=== PATIENT | male | born 1945 | race Two or more races ===

== ENCOUNTER 2020-07-24 16:09 | Emergency (ER) | payer OTHER ==
[~2020-07-24] VITALS: Ht 160 cm; Wt 65.8 kg
[~2020-07-24 16:09] MED LIST: ASA81 MG; METFORMIN HCL850 MG
[2020-07-24] MEDS ORDERED: KETO10TA2 PO (21:40)
== END 2020-07-24 22:07 | disposition home or self-care (01) ==
LOC: ER 16:09
DX: R10.32 Left lower quadrant pain (principal)

== ENCOUNTER 2023-06-18 17:19 | Emergency (ER) | payer OTHER ==
[~2023-06-18] VITALS: Ht 154.9 cm; Wt 70.8 kg
[~2023-06-18 17:19] MED LIST changes: +KETO10TA2 PO
[2023-06-18 18:27] LABS: HEMATOCRIT 47.9 % (39.0-48.0); HEMOGLOBIN 15.9 g/dL (13-16.00); MEAN CELL VOLUME 85.5 fL (80.0-100.00); MEAN CORPUSCULAR HEMOGLOBIN 28.3 pg (27.00-32.0); MEAN CORPUSCULAR HGB CONC 33.1 g/dl (32.0-36.0); PLATELET COUNT 550 K/uL (150-450); RED BLOOD COUNT 5.61 M/uL (4.00-6.00); RED CELL DISTRIBUTION WIDTH 14.5 % (11.5-14.5)
[2023-06-18 18:44] LABS: ALBUMIN 4.1 gm/dL (3.4-5.0); BILIRUBIN TOTAL 0.42 mg/dL (0.3-1.2); CALCIUM 10.3 mg/dL (8.5-10.1); CREATININE SERUM 1.25 mg/dL (0.70-1.30); GFR 56.01; POTASSIUM 4.62 mEq/L (3.5-5.1); TOTAL PROTEIN 8.1 gm/dL (6.4-8.2)
[2023-06-18 18:51] LABS: PH,URINE 6.5 (5.0-8.0); URINE APPEARANCE Clear; URINE BILIRRUBIN Negative (NEGATIVE); URINE BLOOD Negative; URINE COLOR Yellow; URINE LEUKOCYTE Negative; URINE NITRATE Negative; URINE PROTEIN 30 (NEGATIVE); URINE UROBILINOGEN 0.2 E.U./dl
[2023-06-18 18:52] LABS: URINE BACTERIA 33.9 uL (0.0-1933); URINE WBC 4.9 uL (0.0-23.2)
[2023-06-18 18:53] LABS: URINE EPITHELIAL CELLS 0.4 uL (0.0-38.8); URINE GLUCOSE >=1000 MG/DL (NEGATIVE)
== END 2023-06-18 22:04 | disposition home or self-care (01) ==
LOC: ER 17:19
PROVIDERS: General Practice
DX: R51.9 Headache, unspecified (principal); Z20.822 Contact with and (suspected) exposure to COVID-19

== ENCOUNTER 2023-09-24 23:16 | Inpatient (IN) | payer OTHER ==
[~2023-09-24] VITALS: Ht 152.4 cm; Wt 63.5 kg
[2023-09-24] MEDS ORDERED: GLIPIZIDE ER10 MG PO (23:47)
[2023-09-24] MEDS ORDERED: TRADJENTA5 MG PO (23:48)
[2023-09-24] MEDS ORDERED: ARICEPT10 MG PO (23:48)
[2023-09-24] MEDS ORDERED: AMITRIPTYLINE H25 MG (23:49)
[2023-09-24] MEDS ORDERED: ZESTRIL2.5 MG PO (23:49)
[2023-09-24] MEDS ORDERED: AMITRIPTYLINE H25 MG PO (23:49)
[2023-09-24] MEDS ORDERED: ATORVASTATIN CA10 MG PO (23:50)
[2023-09-25] MEDS ORDERED: LORazepam 2 MG/ML VIAL IV PUSH STA (00:25)
[2023-09-25 01:01] LABS: HEMATOCRIT 41.1 % (39.0-48.0); HEMOGLOBIN 13.6 g/dL (13-16.00); MEAN CELL VOLUME 85.3 fL (80.0-100.00); MEAN CORPUSCULAR HEMOGLOBIN 28.2 pg (27.00-32.0); MEAN CORPUSCULAR HGB CONC 33.1 g/dl (32.0-36.0); PLATELET COUNT 402 K/uL (150-450); RED BLOOD COUNT 4.82 M/uL (4.00-6.00); RED CELL DISTRIBUTION WIDTH 14.7 % (11.5-14.5)
[2023-09-25 01:11] LABS: INR 1.12; PARTIAL THROMBOPLASTIN TIME 29.4 SECONDS (22.0-34.0); PROTHROMBIN TIME 11.7 SECONDS (9.0-11.5)
[2023-09-25 01:16] LABS: ALBUMIN 3.7 gm/dL (3.4-5.0); BILIRUBIN TOTAL 0.64 mg/dL (0.3-1.2); CALCIUM 9.1 mg/dL (8.5-10.1); CREATININE SERUM 1.22 mg/dL (0.70-1.30); GFR 57.6; GLOBULINA 3.8 G/DL (2.4-3.5); POTASSIUM 4.58 mEq/L (3.5-5.1); TOTAL PROTEIN 7.5 gm/dL (6.4-8.2)
[2023-09-25 01:17] LABS: PH,URINE 6.5 (5.0-8.0); URINE APPEARANCE Clear; URINE BILIRRUBIN Negative (NEGATIVE); URINE BLOOD Negative; URINE COLOR Yellow; URINE LEUKOCYTE Negative; URINE NITRATE Negative; URINE UROBILINOGEN 0.2 E.U./dl
[2023-09-25 01:21] LABS: URINE EPITHELIAL CELLS 4.6 uL (0.0-38.8); URINE RBC 5.4 uL (0.0-20.8); URINE WBC 34.1 uL (0.0-23.2)
[2023-09-25 01:34] LABS: URINE GLUCOSE >=1000 MG/DL (NEGATIVE); URINE PROTEIN 100 (NEGATIVE)
[2023-09-25] MEDS ORDERED: DIPHENHYDRAMINE HCL 50 MG/ML VIAL 1ML IV STA (02:38)
[2023-09-25] MEDS ORDERED: DEXAMETHASONE SODIUM PHOSPHATE 4 MG/ML VIAL IV STA (03:45)
[2023-09-25] MEDS ORDERED: HALOPERIDOL LACTATE 5 MG/ML AMPUL IV STA ×2 (04:00→05:11)
[2023-09-25] MEDS ORDERED: 0.9 % SODIUM CHLORIDE 1,000 ML IV ONE ×2 (05:30→15:15)
[2023-09-25] MEDS ORDERED: LORazepam 2 MG/ML VIAL IV PRN ×2 (08:00→15:00)
[2023-09-25] MEDS ORDERED: ACETAMINOPHEN 650 MG SUPP.RECT RECTAL ONE (08:15)
[2023-09-25] MEDS ORDERED: VANCOMYCIN HCL 1,000 MG in 0.9 % SODIUM CHLORIDE 250 ML IV SCH (14:51)
[2023-09-25] MEDS ORDERED: CEFTRIAXONE SODIUM 1,000 MG VIAL IV SCH (14:52)
[2023-09-25] MEDS ORDERED: ACYCLOVIR SODIUM 1,000 MG in DEXTROSE 5 % IN WATER 250 ML IV SCH (14:55)
[2023-09-25] MEDS ORDERED: INSULIN LISPRO 1,000 UNIT/10 ML UNITS SUBCUTANEO PRN (15:00)
[2023-09-25] MEDS ORDERED: DEXTROSE 50 % IN WATER 0.5 G/ML DISP.SYRIN IV PRN (15:00)
[2023-09-25] MEDS ORDERED: ENALAPRILAT DIHYDRATE 1.25 MG/ML VIAL IV PRN (15:00)
[2023-09-25] MEDS ORDERED: FAMOTIDINE/PF 20 MG in 0.9 % SODIUM CHLORIDE 100 ML IV SCH (21:00)
[2023-09-26] MEDS ORDERED: AMPICILLIN SODIUM 2,000 MG in 0.9 % SODIUM CHLORIDE 100 ML IV SCH
[2023-09-26 07:27] LABS: HEMATOCRIT 46.4 % (39.0-48.0); HEMOGLOBIN 15.2 g/dL (13-16.00); MEAN CELL VOLUME 85.4 fL (80.0-100.00); MEAN CORPUSCULAR HGB CONC 32.8 g/dl (32.0-36.0); PLATELET COUNT 406 K/uL (150-450); RED BLOOD COUNT 5.43 M/uL (4.00-6.00); RED CELL DISTRIBUTION WIDTH 14.7 % (11.5-14.5)
[2023-09-26 07:34] LABS: ALBUMIN 3.7 gm/dL (3.4-5.0); BILIRUBIN TOTAL 0.89 mg/dL (0.3-1.2); CALCIUM 8.6 mg/dL (8.5-10.1); CREATININE SERUM 1.25 mg/dL (0.70-1.30); GFR 56.01; POTASSIUM 4.51 mEq/L (3.5-5.1); T4 FREE 1.06 NG/ML (0.76-1.46); TOTAL PROTEIN 7.7 gm/dL (6.4-8.2); TSH 1.14 uIU/mL (0.358-3.74)
[2023-09-26 07:35] LABS: C-REACTIVE PROTEIN 2.11 MG/DL (0.00-0.29)
[2023-09-26] MEDS ORDERED: ACYCLOVIR SODIUM 1,000 MG VIAL IV ONE (08:15)
[2023-09-26] MEDS ORDERED: VANCOMYCIN HCL 1,000 MG in 0.9 % SODIUM CHLORIDE 250 ML IV SCH (09:00)
[2023-09-26] MEDS ORDERED: ENOXAPARIN SODIUM 40 MG/0.4 ML SYRINGE SUBCUTANEO SCH (09:00)
[2023-09-26] MEDS ORDERED: ACYCLOVIR SODIUM 1,000 MG VIAL IV SCH (09:00)
[2023-09-26] MEDS ORDERED: CEFTRIAXONE SODIUM 2,000 MG VIAL IV SCH (09:00)
[2023-09-26] MEDS ORDERED: NYSTATIN 15 GM,SILVER SULFADIAZINE 50 GM,ZINC OXIDE 30 GM TOP SCH (11:00)
[2023-09-26] MEDS ORDERED: ACYCLOVIR SODIUM 7MG/ML REDILUIDO IV SCH (21:00)
[2023-09-26] MEDS ORDERED: INSULIN NPH HUMAN ISOPHANE 1,000 UNITS/10 ML UNITS SUBCUTANEO SCH (21:00)
[2023-09-26 21:41] LABS: GLU CSF 140 mg/dl (41-70); PROT CSF 101 mg/dl (15-45)
[2023-09-26 22:02] LABS: CSF APPEARANCE CRYSTAL CLEAR; CSF COLOR COLOR LESS
[2023-09-26 22:03] LABS: CSF RBC 46.2 /mm3 (0-5.0); CSF WBC 44.5 /mm3 (0-5)
[2023-09-26 22:23] LABS: CSF MONONUCLEAR 0 %; CSF POLYMORPHONUCLEAR 100 %
[2023-09-27] MEDS ORDERED: FAMOTIDINE/PF 20 MG in 0.9 % SODIUM CHLORIDE 100 ML IV SCH (09:00)
[2023-09-27] MEDS ORDERED: EMOLLIENTS 6 OZ BOTTLE TOP SCH ×2 (09:00→13:00)
[2023-09-27 09:52] LABS: HEMATOCRIT 42.4 % (39.0-48.0); HEMOGLOBIN 13.9 g/dL (13-16.00); MEAN CELL VOLUME 84.8 fL (80.0-100.00); MEAN CORPUSCULAR HEMOGLOBIN 27.8 pg (27.00-32.0); MEAN CORPUSCULAR HGB CONC 32.8 g/dl (32.0-36.0); PLATELET COUNT 311 K/uL (150-450); RED CELL DISTRIBUTION WIDTH 14.9 % (11.5-14.5)
[2023-09-27 10:06] LABS: ALBUMIN 2.8 gm/dL (3.4-5.0); BILIRUBIN TOTAL 0.54 mg/dL (0.3-1.2); CALCIUM 7.8 mg/dL (8.5-10.1); CREATININE SERUM 0.86 mg/dL (0.70-1.30); GFR 86.23; GLOBULINA 3.9 G/DL (2.4-3.5); MAGNESIUM 1.6 mg/dL (1.8-2.4); POTASSIUM 3.57 mEq/L (3.5-5.1); TOTAL PROTEIN 6.7 gm/dL (6.4-8.2)
[2023-09-27] MEDS ORDERED: MAGNESIUM SULFATE IN WATER 50 ML IV ONE (11:15)
[2023-09-27] MEDS ORDERED: POTASSIUM PHOS,M-BASIC-D-BASIC 3 MM/ML VIAL IV NR (11:15)
[2023-09-27] MEDS ORDERED: INSULIN NPH HUMAN ISOPHANE 1,000 UNITS/10 ML UNITS SUBCUTANEO SCH (21:00)
[2023-09-28] MEDS ORDERED: LISINOPRIL 2.5 MG TABLET PO SCH (09:00)
[2023-09-28] MEDS ORDERED: INSULIN NPH HUMAN ISOPHANE 1,000 UNITS/10 ML UNITS SUBCUTANEO SCH (21:00)
[2023-09-28] MEDS ORDERED: AMPICILLIN SODIUM 2,000 MG in 0.9 % SODIUM CHLORIDE 100 ML IV SCH (21:00)
[2023-09-28] MEDS ORDERED: VANCOMYCIN HCL 1,000 MG in 0.9 % SODIUM CHLORIDE 250 ML IV SCH (21:00)
[2023-09-29] MEDS ORDERED: ACYCLOVIR SODIUM 7MG/ML REDILUIDO IV SCH (01:00)
[2023-09-29 06:54] LABS: HEMATOCRIT 36.8 % (39.0-48.0); HEMOGLOBIN 11.8 g/dL (13-16.00); MEAN CORPUSCULAR HGB CONC 32.2 g/dl (32.0-36.0); PLATELET COUNT 326 K/uL (150-450); RED BLOOD COUNT 4.38 M/uL (4.00-6.00); RED CELL DISTRIBUTION WIDTH 15.3 % (11.5-14.5)
[2023-09-29 07:30] LABS: ALBUMIN 2.4 gm/dL (3.4-5.0); BILIRUBIN TOTAL 0.39 mg/dL (0.3-1.2); CALCIUM 7.5 mg/dL (8.5-10.1); CREATININE SERUM 0.77 mg/dL (0.70-1.30); GFR 97.96; MAGNESIUM 1.8 mg/dL (1.8-2.4); POTASSIUM 3.37 mEq/L (3.5-5.1); TOTAL PROTEIN 5.4 gm/dL (6.4-8.2)
[2023-09-29 08:32] LABS: PLATELET ESTIMATE NORMAL (NORMAL)
[2023-09-29] MEDS ORDERED: LISINOPRIL 2.5 MG TABLET PO SCH (09:00)
[2023-09-29] MEDS ORDERED: POTASSIUM PHOS,M-BASIC-D-BASIC 15 MM in 0.9 % SODIUM CHLORIDE 250 ML IV ONE (14:00)
[2023-09-30] MEDS ORDERED: LORazepam 2 MG/ML VIAL ONE (02:38)
[2023-09-30] MEDS ORDERED: INSULIN NPH HUMAN ISOPHANE 1,000 UNITS/10 ML UNITS SUBCUTANEO SCH (08:00)
[2023-09-30] MEDS ORDERED: LISINOPRIL 10 MG TABLET PO SCH (09:00)
[2023-09-30] MEDS ORDERED: CLEVIDIPINE BUTYRATE 100 ML IV SCH (10:30)
[2023-10-01 06:15] LABS: HEMOGLOBIN 12.3 g/dL (13-16.00); MEAN CELL VOLUME 85.4 fL (80.0-100.00); MEAN CORPUSCULAR HEMOGLOBIN 27.7 pg (27.00-32.0); MEAN CORPUSCULAR HGB CONC 32.5 g/dl (32.0-36.0); PLATELET COUNT 383 K/uL (150-450); RED BLOOD COUNT 4.46 M/uL (4.00-6.00); RED CELL DISTRIBUTION WIDTH 14.9 % (11.5-14.5)
[2023-10-01 06:55] LABS: ALBUMIN 2.4 gm/dL (3.4-5.0); BILIRUBIN TOTAL 0.42 mg/dL (0.3-1.2); CALCIUM 7.9 mg/dL (8.5-10.1); CREATININE SERUM 0.94 mg/dL (0.70-1.30); GFR 77.82; GLOBULINA 3.4 G/DL (2.4-3.5); MAGNESIUM 1.6 mg/dL (1.8-2.4); PHOSPHOROUS 2.7 mg/dL (2.5-4.9); POTASSIUM 3.39 mEq/L (3.5-5.1); TOTAL PROTEIN 5.8 gm/dL (6.4-8.2)
[2023-10-01] MEDS ORDERED: hydrALAZINE HCL 25 MG TABLET PO SCH (09:00)
[2023-10-01] MEDS ORDERED: METOPROLOL TARTRATE 25 MG TABLET PO SCH (09:00)
[2023-10-01] MEDS ORDERED: POTASSIUM CHLORIDE IN WATER 100 ML IV ONE (12:30)
[2023-10-01] MEDS ORDERED: MAGNESIUM SULFATE IN WATER 4 GM/100 ML PIGGYBACK IV ONE (12:30)
[2023-10-01 19:24] LABS: ABG PH 7.507 (7.35-7.45); ABG pCO2 28.5 mmHg (35-45)
[2023-10-01 19:25] LABS: ABG PO2 59.7 mmHg (80-100); BASE EXCESS 0.3 mmol/l; BICARBONATE 22.1 mmol/l (23-25); SaO2 93.1 %; allen test SATISFACTORY; o2 21 %; puncture site RADIAL LEFT
[2023-10-01] MEDS ORDERED: INSULIN LISPRO 1,000 UNIT/10 ML UNITS SUBCUTANEO PRN (20:30)
[2023-10-01] MEDS ORDERED: DEXTROSE 50 % IN WATER 0.5 G/ML DISP.SYRIN IV PRN (20:30)
[2023-10-02] MEDS ORDERED: INSULIN NPH HUMAN ISOPHANE 1,000 UNITS/10 ML UNITS SUBCUTANEO SCH (08:00)
[2023-10-02 08:07] LABS: HEMATOCRIT 37.7 % (39.0-48.0); HEMOGLOBIN 12.2 g/dL (13-16.00); MEAN CELL VOLUME 83.6 fL (80.0-100.00); MEAN CORPUSCULAR HGB CONC 32.3 g/dl (32.0-36.0); PLATELET COUNT 428 K/uL (150-450); RED BLOOD COUNT 4.51 M/uL (4.00-6.00); RED CELL DISTRIBUTION WIDTH 15.4 % (11.5-14.5)
[2023-10-02 08:28] LABS: CALCIUM 8.1 mg/dL (8.5-10.1); CREATININE SERUM 0.93 mg/dL (0.70-1.30); GFR 78.78; MAGNESIUM 2.3 mg/dL (1.8-2.4); PHOSPHOROUS 2.4 mg/dL (2.5-4.9); POTASSIUM 3.83 mEq/L (3.5-5.1)
[2023-10-02] MEDS ORDERED: DOXAZOSIN MESYLATE 2 MG TABLET PO SCH (10:32)
[2023-10-02 15:08] LABS: hsv I pcr Negative (Negative)
[2023-10-02 15:08] LABS: a:g ratio 0.9 (0.7-1.7); alpha 1 g 0.2 g/dL (0.0-0.4); alpha 2 1.1 g/dL (0.4-1.0); beta g 0.8 g/dL (0.7-1.3); globulin t 3.1 g/dL (2.2-3.9); m spike Not Observed g/dL (Not Observed)
[2023-10-02] MEDS ORDERED: INSULIN NPH HUM/REG INSULIN HM 1,000 UNIT/10 ML UNITS SUBCUTANEO SCH (17:00)
[2023-10-02] MEDS ORDERED: FUROsemide 20 MG/2 ML VIAL IV SCH (17:08)
[2023-10-02] MEDS ORDERED: SODIUM CL 0.9% 100 ML IV.SOLN IV ONE (19:47)
[2023-10-03 07:19] LABS: HEMATOCRIT 33.1 % (39.0-48.0); MEAN CELL VOLUME 85.2 fL (80.0-100.00); MEAN CORPUSCULAR HGB CONC 31.6 g/dl (32.0-36.0); PLATELET COUNT 377 K/uL (150-450); RED BLOOD COUNT 3.88 M/uL (4.00-6.00); RED CELL DISTRIBUTION WIDTH 15.1 % (11.5-14.5)
[2023-10-03 07:32] LABS: HEMOGLOBIN 10.5 g/dL (13-16.00)
[2023-10-03 07:49] LABS: CALCIUM 7.8 mg/dL (8.5-10.1); CREATININE SERUM 1.12 mg/dL (0.70-1.30); GFR 63.57; MAGNESIUM 2.1 mg/dL (1.8-2.4); PHOSPHOROUS 3.3 mg/dL (2.5-4.9); POTASSIUM 3.52 mEq/L (3.5-5.1)
[2023-10-03] MEDS ORDERED: INSULIN NPH HUMAN ISOPHANE 1,000 UNITS/10 ML UNITS SUBCUTANEO SCH (08:00)
[2023-10-03] MEDS ORDERED: LOSARTAN POTASSIUM 50 MG TABLET PO SCH (15:56)
[2023-10-03] MEDS ORDERED: AMLODIPINE BESYLATE 5 MG TABLET PO SCH (17:00)
[2023-10-03] MEDS ORDERED: LOSARTAN POTASSIUM 50 MG TABLET PO ONE (18:52)
[2023-10-03] MEDS ORDERED: AMLODIPINE BESYLATE 5 MG TABLET PO ONE (18:52)
[2023-10-03] MEDS ORDERED: hydrALAZINE HCL 25 MG TABLET PO SCH (21:00)
[2023-10-04] MEDS ORDERED: VANCOMYCIN HCL 1,000 MG in 0.9 % SODIUM CHLORIDE 250 ML IV SCH (09:00)
[2023-10-04] MEDS ORDERED: CEFTRIAXONE SODIUM 2,000 MG VIAL IV SCH (09:00)
[2023-10-04] MEDS ORDERED: FUROsemide 20 MG/2 ML VIAL IV SCH (09:00)
[2023-10-04] MEDS ORDERED: AMPICILLIN SODIUM 2,000 MG in 0.9 % SODIUM CHLORIDE 100 ML IV SCH (12:00)
[2023-10-04] MEDS ORDERED: AMLODIPINE BESYLATE 10 MG TABLET PO SCH (17:00)
[2023-10-04] MEDS ORDERED: INSULIN NPH HUM/REG INSULIN HM 1,000 UNIT/10 ML UNITS SUBCUTANEO SCH (17:00)
[2023-10-04] MEDS ORDERED: IPRATROPIUM BROMIDE 0.5 MG/2.5 ML AMPUL.NEB IH SCH (20:20)
[2023-10-04] MEDS ORDERED: GUAIFENESIN/DEXTROMETHORPHAN 100 MG/5 ML ML PO SCH (20:21)
[2023-10-05] MEDS ORDERED: INSULIN NPH HUMAN ISOPHANE 1,000 UNITS/10 ML UNITS SUBCUTANEO SCH (08:00)
[2023-10-05] MEDS ORDERED: GUAIFENESIN/DEXTROMETHORPHAN 100 MG/5 ML ML PO SCH ×2 (12:00)
[2023-10-06 07:40] LABS: HEMATOCRIT 33.9 % (39.0-48.0); HEMOGLOBIN 11.1 g/dL (13-16.00); MEAN CELL VOLUME 85.3 fL (80.0-100.00); MEAN CORPUSCULAR HEMOGLOBIN 27.9 pg (27.00-32.0); MEAN CORPUSCULAR HGB CONC 32.8 g/dl (32.0-36.0); PLATELET COUNT 375 K/uL (150-450); RED BLOOD COUNT 3.98 M/uL (4.00-6.00); RED CELL DISTRIBUTION WIDTH 14.9 % (11.5-14.5)
[2023-10-06 07:59] LABS: ERYTHROCYTE SEDIMENTATION RATE 103 mm/hr
[2023-10-06] MEDS ORDERED: INSULIN NPH HUMAN ISOPHANE 1,000 UNITS/10 ML UNITS SUBCUTANEO SCH (08:00)
[2023-10-06 08:04] LABS: ALBUMIN 2.2 gm/dL (3.4-5.0); BILIRUBIN TOTAL 0.34 mg/dL (0.3-1.2); CALCIUM 7.9 mg/dL (8.5-10.1); CREATININE SERUM 0.96 mg/dL (0.70-1.30); GFR 75.95; GLOBULINA 3.9 G/DL (2.4-3.5); POTASSIUM 3.39 mEq/L (3.5-5.1); TOTAL PROTEIN 6.1 gm/dL (6.4-8.2)
[2023-10-06 08:06] LABS: C-REACTIVE PROTEIN 7.1 MG/DL (0.00-0.29)
[2023-10-06 10:06] LABS: ABG PH 7.479 (7.35-7.45); ABG PO2 60.7 mmHg (80-100); ABG pCO2 31.9 mmHg (35-45); BASE EXCESS 0.6 mmol/l; BICARBONATE 23.2 mmol/l (23-25); SaO2 92.8 %; Tco2 24.2 mmol/l
[2023-10-06 10:07] LABS: allen test SATISFACTORY; o2 21 %; puncture site RADIAL RIGHT
[2023-10-06] MEDS ORDERED: FAMOtidine 20 MG TABLET PO SCH (21:00)
[2023-10-06] MEDS ORDERED: FUROsemide 20 MG/2 ML VIAL IV SCH (21:00)
[2023-10-07] MEDS ORDERED: LORazepam 2 MG/ML VIAL IV PRN (02:00)
[2023-10-07 04:49] LABS: HEMATOCRIT 33.9 % (39.0-48.0); MEAN CELL VOLUME 84.1 fL (80.0-100.00); MEAN CORPUSCULAR HGB CONC 31.8 g/dl (32.0-36.0); PLATELET COUNT 396 K/uL (150-450); RED BLOOD COUNT 4.03 M/uL (4.00-6.00); RED CELL DISTRIBUTION WIDTH 15.4 % (11.5-14.5)
[2023-10-07 04:52] LABS: HEMOGLOBIN 10.8 g/dL (13-16.00); MEAN CORPUSCULAR HEMOGLOBIN 26.7 pg (27.00-32.0)
[2023-10-07 05:12] LABS: ALBUMIN 2.2 gm/dL (3.4-5.0); BILIRUBIN TOTAL 0.22 mg/dL (0.3-1.2); CALCIUM 7.9 mg/dL (8.5-10.1); CREATININE SERUM 0.97 mg/dL (0.70-1.30); GFR 75.05; GLOBULINA 3.4 G/DL (2.4-3.5); POTASSIUM 3.4 mEq/L (3.5-5.1); TOTAL PROTEIN 5.6 gm/dL (6.4-8.2)
[2023-10-07] MEDS ORDERED: AMINO ACIDS 1 EACH TABLET PO SCH (09:00)
[2023-10-07] MEDS ORDERED: LACTOBACILLUS ACIDOPHILUS 1 CAP CAP PO SCH (09:00)
[2023-10-07] MEDS ORDERED: AMPICILLIN SODIUM 1,000 MG VIAL ONE (20:45)
[2023-10-08] MEDS ORDERED: INSULIN NPH HUMAN ISOPHANE 1,000 UNITS/10 ML UNITS SUBCUTANEO SCH (08:00)
[2023-10-08] MEDS ORDERED: SODIUM CL 0.9% 100 ML IV.SOLN IV ONE (16:33)
[2023-10-08] MEDS ORDERED: AMPICILLIN SODIUM 1,000 MG VIAL ONE (20:33)
[2023-10-09] MEDS ORDERED: INSULIN NPH HUM/REG INSULIN HM 1,000 UNIT/10 ML UNITS SUBCUTANEO SCH (17:00)
[2023-10-09] MEDS ORDERED: VANCOMYCIN HCL 1,000 MG in 0.9 % SODIUM CHLORIDE 250 ML IV SCH (21:00)
[2023-10-10] MEDS ORDERED: INSULIN NPH HUMAN ISOPHANE 1,000 UNITS/10 ML UNITS SUBCUTANEO SCH (08:00)
[2023-10-10] MEDS ORDERED: FUROsemide 20 MG TABLET PO SCH (09:00)
== END 2023-10-10 19:18 | disposition home or self-care (01) | DRG 97 ==
LOC: ER → ICU-2 09-25 15:10 → ICU 09-25 15:10 → MEDI 10-06 19:21
PROVIDERS: Anesthesiology Pain Medicine; General Practice; Internal Medicine; Internal Medicine Geriatric Medicine; Psychiatry & Neurology Clinical Neurophysiology; ADMIT Internal Medicine; ATTEND Internal Medicine
PROC: B020ZZZ Computerized Tomography (CT Scan) of Brain (ICD-10-PCS; 2023-09-25)
PROC: B030ZZZ Magnetic Resonance Imaging (MRI) of Brain (ICD-10-PCS; 2023-09-25)
PROC: B246ZZZ Ultrasonography of Right and Left Heart (ICD-10-PCS; 2023-09-25)
PROC: 02HV33Z Insertion of Infusion Device into Superior Vena Cava, Percutaneous Approach (ICD-10-PCS; 2023-09-26)
PROC: 009U3ZX Drainage of Spinal Canal, Percutaneous Approach, Diagnostic (ICD-10-PCS; principal; 2023-09-26 21:00)
PROC: B030YZZ Magnetic Resonance Imaging (MRI) of Brain using Other Contrast (ICD-10-PCS; 2023-09-30)
PROC: BB24YZZ Computerized Tomography (CT Scan) of Bilateral Lungs using Other Contrast (ICD-10-PCS; 2023-10-01)
PROC: 3E0F7GC Introduction of Other Therapeutic Substance into Respiratory Tract, Via Natural or Artificial Opening (ICD-10-PCS; 2023-10-06)
DX: G03.0 Nonpyogenic meningitis (principal); J69.0 Pneumonitis due to inhalation of food and vomit; N17.9 Acute kidney failure, unspecified; J90 Pleural effusion, not elsewhere classified; J98.11 Atelectasis; R00.0 Tachycardia, unspecified; E11.65 Type 2 diabetes mellitus with hyperglycemia; I10 Essential (primary) hypertension; F02.80 Dementia in other diseases classified elsewhere, unspecified severity, without behavioral disturbance, psychotic disturbance, mood disturbance, and anxiety; Z79.84 Long term (current) use of oral hypoglycemic drugs; Y95 Nosocomial condition; Z78.1 Physical restraint status; R41.82 Altered mental status, unspecified
CPT/HCPCS: 70551; 70552